=== PATIENT | female | born 1990 | race Caucasian/White ===

== ENCOUNTER 2020-05-05 07:51 | Outpatient (CLI) | payer BC, MEDICAID ==
[2020-05-05] VITALS (17 sets, daily range): BP systolic 93–115; BP diastolic 49–80
[~2020-05-05 07:51] MED LIST: DIAZ5TAB PO
== END 2020-05-05 23:59 | disposition home or self-care (01) ==
LOC: CARD DIAG 07:51
PROVIDERS: ATTEND Internal Medicine Interventional Cardiology
DX: R55 Syncope and collapse (principal)
CPT/HCPCS: 93660